=== PATIENT | male | born 1995 | race Caucasian/White ===

== ENCOUNTER 2017-12-30 13:47 | Emergency (ER) | payer BC ==
[~2017-12-30] VITALS: Ht 188 cm; Wt 137.6 kg
[2017-12-30 14:07] VITALS: BP 146/75
[2017-12-30] MEDS ORDERED: FLEXERIL10 MG PO (15:19)
[2017-12-30] MEDS ORDERED: LIDODERM 5% P1 PATCH TD (15:19)
[2017-12-30] MEDS ORDERED: PREDNISONE20 MG PO (15:19)
== END 2017-12-30 16:11 | disposition home or self-care (01) ==
LOC: EME 13:47
DX: M54.12 Radiculopathy, cervical region (principal); M62.838 Other muscle spasm; F17.200 Nicotine dependence, unspecified, uncomplicated
CPT/HCPCS: 99281; 99283

== ENCOUNTER 2018-03-07 00:07 | Emergency (ER) | payer BC ==
[~2018-03-07] VITALS: Ht 188 cm; Wt 131.7 kg
[~2018-03-07 00:07] MED LIST: FLEXERIL10 MG PO; LIDODERM 5% P1 PATCH TD; PREDNISONE20 MG PO
[2018-03-07 00:28] LABS: HEMATOCRIT 45.6 % (38.0-50.0); HEMOGLOBIN 15.8 G/DL (12.5-16.6); MCH 28.9 PG (29.0-34.0); MCHC 34.6 G/DL (30.0-36.0); MCV 83.4 FL (86-99); PLATELET COUNT 250 K/uL (156-360); RBC DIS.WIDTH-SD 36.4 % (39-53); RED BLOOD COUNT 5.47 M/uL (4.00-5.50); WHITE BLOOD COUNT 14.7 K/uL (4.1-10.2)
[2018-03-07 00:35] LABS: CHLORIDE 105 mEq/L (99-109); POTASSIUM 3.5 mEq/L (3.7-5.4); SODIUM 139 mEq/L (136-147)
[2018-03-07 00:37] LABS: GLUCOSE 105 mg/dL (70-99)
[2018-03-07 00:40] LABS: CREATININE 1.1 mg/dL (0.6-1.3); GFR ESTIMATE (CALCULATED) > 59 mL/min/ (58.99-99999)
[2018-03-07 00:41] LABS: UREA NITROGEN (BUN) 19 mg/dL (9-23)
[2018-03-07 00:48] LABS: TROP-I INTERPRETATION NEGATIVE; TROPONIN-I < 0.01 ng/mL (0.0-0.30)
[2018-03-07 03:14] LABS: ALBUMIN 4.8 g/dL (3.2-4.8)
[2018-03-07 03:17] LABS: TOTAL PROTEIN 7.5 g/dL (6.4-8.3)
[2018-03-07 03:18] LABS: TOTAL BILIRUBIN 0.9 mg/dL (0.0-1.0)
[2018-03-07 03:19] LABS: ALKALINE PHOSPHATASE 73 IU/L (3-129)
[2018-03-07 03:22] LABS: AST (GOT) 18 IU/L (2-34); DIRECT BILIRUBIN 0.4 mg/dL (0.0-0.3)
[2018-03-07 03:23] LABS: ALT (GPT) 28 IU/L (3-49); LIPASE 9 U/L (1.0-51.0)
[2018-03-07 04:49] LABS: TROP-I INTERPRETATION NEGATIVE; TROPONIN-I < 0.01 ng/mL (0.0-0.30)
[2018-03-07] MEDS ORDERED: PEPCID20 MG PO (04:49)
[2018-03-07 05:23] VITALS: BP 133/75
== END 2018-03-07 06:49 | disposition home or self-care (01) ==
LOC: EME 00:07
PROVIDERS: Emergency Medicine
DX: R07.9 Chest pain, unspecified (principal); I45.10 Unspecified right bundle-branch block; F17.200 Nicotine dependence, unspecified, uncomplicated; K76.0 Fatty (change of) liver, not elsewhere classified
CPT/HCPCS: 71046; 76705; 80048; 80076; 83690; 84484; 85027; 93005; 99281; 99284